=== PATIENT | female | born 1935 | race Caucasian/White ===

== ENCOUNTER 2018-12-17 11:05 | Emergency (ER) | payer OTHER ==
[2018-12-17] MEDS: HYDROmorphONE 2 MG/ML SYG IM (11:27)
[2018-12-17] MEDS: ONDANSETRON (ODT) 4 MG TAB ODT (11:28)
[2018-12-17] MEDS: KETOROLAC 30 MG INJ IM (11:28)
== END 2018-12-17 14:20 | disposition home or self-care (01) ==
LOC: E/R 11:05
DX: M54.5 Low back pain (principal)
CPT/HCPCS: 71250; 74176; 96372; 99285-25